=== PATIENT | male | born 1950 | race Caucasian/White ===

== ENCOUNTER 2023-11-20 11:16 | Emergency (ER) | payer MEDICARE ==
[~2023-11-20] VITALS: Ht 185.4 cm; Wt 97.7 kg
[2023-11-20 11:32] VITALS: TEMP 98.5
[2023-11-20] MEDS ORDERED: Home HYDROcodone/Acetaminophen 5/325 MG #4 TABS/PACK PO ONE (13:45)
[2023-11-20 13:55] VITALS: BP 146/91; PULSE 68
== END 2023-11-20 13:55 | disposition home or self-care (01) ==
LOC: COL.ER 11:16
DX: S22.32XA Fracture of one rib, left side, initial encounter for closed fracture (principal); W01.0XXA Fall on same level from slipping, tripping and stumbling without subsequent striking against object, initial encounter
CPT/HCPCS: A9284